=== PATIENT | male | born 1980 | race Two or more races ===

== ENCOUNTER 2023-05-15 01:31 | Emergency (ER) | payer OTHER ==
[~2023-05-15] VITALS: Ht 177.8 cm; Wt 102.5 kg
[2023-05-15 03:39] VITALS: BP 123/66; PULSE 68; RESP 18; TEMP 98.3; O2SAT 95
[2023-05-15] MEDS ORDERED: IBUP-1456 PO (03:47)
[2023-05-15] MEDS ORDERED: PRED20TA2 PO (03:47)
[2023-05-15] MEDS: KETOROLAC TROMETH 60MG/2ML VIAL IM ONE (03:54)
== END 2023-05-15 04:02 | disposition home or self-care (01) ==
LOC: ER 01:31
DX: M77.8 Other enthesopathies, not elsewhere classified (principal); Z98.890 Other specified postprocedural states; Z79.899 Other long term (current) drug therapy
CPT/HCPCS: 73030; 96372; 99283; J1885

== ENCOUNTER 2023-10-19 08:51 | Emergency (ER) | payer OTHER ==
[~2023-10-19] VITALS: Ht 177.8 cm; Wt 106.9 kg
[~2023-10-19 08:51] MED LIST: IBUP-1456 PO; PRED20TA2 PO
[2023-10-19] MEDS ORDERED: TOB03OS OP (09:38)
[2023-10-19 09:40] VITALS: BP 128/74; PULSE 72; RESP 20; TEMP 98.4; O2SAT 100
== END 2023-10-19 10:01 | disposition home or self-care (01) ==
LOC: ER 08:51
DX: H10.31 Unspecified acute conjunctivitis, right eye (principal); Z79.1 Long term (current) use of non-steroidal anti-inflammatories (NSAID); Z79.899 Other long term (current) drug therapy; Z90.89 Acquired absence of other organs